=== PATIENT | female | born 1930 | race African-American/Black ===

== ENCOUNTER 2021-08-13 13:39 | Emergency (ER) | payer MEDICARE ==
[~2021-08-13] VITALS: Ht 152.4 cm; Wt 62.3 kg
[~2021-08-13 13:39] MED LIST: ARICEPT23 MG PO; FUROSEMIDE40 MG PO; OMEPRAZOLE40 MG PO; PROAIR HFA INH8.5 GM INH; SIMVASTATIN40 MG PO; [UNRECOGNIZED DRUG - OTHER] IH
[2021-08-13] MEDS ORDERED: PLAVIX75 MG PO (14:02)
[2021-08-13] MEDS ORDERED: SEROQUEL25 MG PO (14:02)
[2021-08-13] MEDS ORDERED: SERTRALINE HCL50 MG PO (14:02)
[2021-08-13] MEDS ORDERED: ONE-A-DAY PRO200 MCG (14:02)
[2021-08-13] MEDS ORDERED: FAMOTIDINE20 MG PO (14:02)
[2021-08-13] MEDS ORDERED: RISPERIDONE2 MG (14:02)
[2021-08-13] MEDS ORDERED: CEFDINIR300 MG PO (14:24)
[2021-08-13] MEDS ORDERED: PROBIOTIC & AC1 EACH PO (14:24)
== END 2021-08-13 14:35 | disposition home or self-care (01) ==
LOC: FSED 14:11
DX: R60.9 Edema, unspecified (principal); N39.0 Urinary tract infection, site not specified; I25.10 Atherosclerotic heart disease of native coronary artery without angina pectoris; K21.9 Gastro-esophageal reflux disease without esophagitis; F32.A Depression, unspecified; Z86.73 Personal history of transient ischemic attack (TIA), and cerebral infarction without residual deficits; Z95.810 Presence of automatic (implantable) cardiac defibrillator
CPT/HCPCS: 99282